=== PATIENT | female | born 1980 | race Two or more races ===

== ENCOUNTER 2017-12-29 10:15 | Inpatient (IN) | payer OTHER ==
--- NOTE | 2017-12-29 11:39 | HP ---
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, benign per heme consult IVF Pertinent Past Surgical History: None Pertinent Family History: See Records Family History Comment: HTN - Antepartal Records Antepartal Records: Reviewed, Complicated by: - IFV, GDM A1, pre- eclampsia Review of Systems Constitutional: Comfortable CV Complaint: No Respiratory: Shortness of Breath: No Gastrointestinal: No Nausea/Vomiting, Normal Bowel Movement Genitourinary: No Dysuria, No Bleeding, No Leaking Fluid Musculoskeletal: No Complaint Neurological: No Headache, No Visual Changes Movement: Normal Exam Allergies/Adverse Reactions: Allergies cinnamon Allergy (Verified 12/04/17 18:13) Swelling Of Face,Lips,& Throat BP 144/104, repeat 142/88 T 98.7 HR 107 RR 22 O2 100 Lab Values - Entire Visit: pending - Measurements Height: 5 ft 7 in Weight: 205 lb Weight in lbs: 205.326136 Body Mass Index (BMI): 32.1 Pre- Weight: 177 lb Weight Gained This : 28 lbs and 0 ozs - Exam Breast: Breast Exam Deferred CVA: No CVA Tenderness Extremities: No Edema Heart: Normal Rhythm/Heart Sounds HEENT: No Significant Findings Lungs: Clear Bilaterally Rectal: Rectal Exam Deferred Reflexes: DTR 2+, - - no clonus Thyroid: - - WNL @ entry to care - Abdominal Exam Abdomen Exam: Non-Tender, Fundal Height Consistent with Dates - Ultrasound/Biophysical Profile Ultrasound Status: Bedside Exam Ultrasound Findings: Confirms vertex Targeted Exam Findings See L&D Outpatient Visit Provider Note for Findings: Yes Estimated Weight: EFW 6-6.5lb Cervical Exam: Fingertip Effacement: 50% Station: -3 Presenting Part: Vertex Membrane Status: Intact EFM Findings - External Monitor Findings Baseline Heart Rate: 145 External Monitor Findings: Accelerations Present, No Pattern of Variable or Late Decelerations, Variability Moderate Contractions: Regular, Mild, < 45 Seconds Contraction Frequency: q 5-6 min Assessment/Plan - Assessment 37 yo with IUP @ 37+5 weeks gestation here for cervical ripening and induction of labor for pre-eclampsia. Hx GDM with this - Obstetrical Risk Factors Obstetrical Risk Factors: PreEclampsia, Gestational Diabetes - Plan Plan: Induction, Cervical Ripening Plan Comment: Admit to L&D. Will draw repeat PEC labs. Discussion of cervical ripening agents , reviewed risks/benefits and patients consent to Cervidil pending stable labs. All questions answered. Per consult with Dr Jansen, consider MgSO4 with active labor for prophylaxis. - Date/Time of Admission Date of Admission: 12/29/17 Time of Admission: 11:15
[2017-12-29 11:40] LABS: ABS Basophils 0 10^3/ul (0-0.2); ABS Eosinophils 0.1 10^3/ul (0-0.6); ABS Lymphocytes 1.4 10^3/ul (1.0-4.8); ABS Monocytes 0.8 10^3/ul (0-0.8); ABS Neutrophils 7.2 10^3/ul (1.5-7.7); ABS Nucleated RBC 0 10^3/ul; Hematocrit 37 % (35-47); Hemoglobin 12.4 g/dl (12.0-16.0); Mean Corpuscular HGB Conc 34 g/dl (31-36); Mean Corpuscular Hemoglobin 28 pg (27-31); Mean Corpuscular Volume 83 fL (80-97); Mean Platelet Volume 9.8 um3 (7.4-10.4); Nucleated Red Blood Cells % 0.1; Platelet Count 228 10^3/ul (150-450); Red Blood Count 4.45 10^6/ul (4.00-5.40); Red Cell Distribution Width 14 % (10.5-15); White Blood Count 9.5 10^3/ul (3.5-10.8)
[2017-12-29] MEDS ORDERED: Dinoprostone* 10 MG VAG.SUPP VAGINAL ONE (12:04)
[2017-12-29 12:42] LABS: Uric Acid 3.6 mg/dL (2.3-6.6)
--- NOTE | 2017-12-29 23:37 | PN ---
Progress Note - Progress Note Date of Service: 12/29/17 SOAP: Subjective: [Patient is feeling well, has been comfortable throughout the day. Mild cramping occasionally but no ctx. Denies RECINOS or visual symptoms. No RUQ pain] Objective: [BP 150/93 T 99.1 FHT 145 ] Assessment: [IUP @ 37+5 weeks gestation for IOL for pre-eclampsia GDM] Plan: [Pull cervidil as planned @ 0130 12/30. Patient to sleep until approx 0600 with plans to recheck cervix and discuss repeat cervidil vs misoprostol]
[2017-12-30] MEDS ORDERED: Misoprostol TAB* 100 MCG PO ONE (09:51)
[2017-12-30] MEDS ORDERED: Misoprostol TAB* 100 MCG PO SCH ×2 (15:05→19:00)
[2017-12-30] MEDS ORDERED: Dinoprostone* 10 MG VAG.SUPP VAGINAL ONE (19:25)
[2017-12-31 08:18] LABS: ABS Basophils 0 10^3/ul (0-0.2); ABS Eosinophils 0.1 10^3/ul (0-0.6); ABS Lymphocytes 1.5 10^3/ul (1.0-4.8); ABS Monocytes 0.7 10^3/ul (0-0.8); ABS Neutrophils 4.4 10^3/ul (1.5-7.7); ABS Nucleated RBC 0 10^3/ul; Eosinophil % 1.8 % (0-6); Hematocrit 36 % (35-47); Hemoglobin 12.2 g/dl (12.0-16.0); Lymphocyte % 22.5 % (25-47); Mean Corpuscular HGB Conc 34 g/dl (31-36); Mean Corpuscular Hemoglobin 28 pg (27-31); Mean Corpuscular Volume 83 fL (80-97); Mean Platelet Volume 9.9 um3 (7.4-10.4); Nucleated Red Blood Cells % 0; Platelet Count 204 10^3/ul (150-450); Red Blood Count 4.34 10^6/ul (4.00-5.40); Red Cell Distribution Width 14 % (10.5-15); White Blood Count 6.8 10^3/ul (3.5-10.8)
[2017-12-31] MEDS ORDERED: Sodium Phosphate ADULT ENEMA* 118 ml bottle PR ONE (12:02)
== END 2017-12-31 14:30 | disposition left against medical advice (07) | DRG 781 ==
LOC: MCHOBOUT 10:15 → MCHOB 10:16 → UNDOADMIN 11:19 → MCHOBOUT 12-31 14:30
PROVIDERS: ADMIT Obstetrics & Gynecology; ATTEND Obstetrics & Gynecology
PROC: 3E0P7VZ Introduction of Hormone into Female Reproductive, Via Natural or Artificial Opening (ICD-10-PCS; principal; 2017-12-29)
PROC: 4A1HX4Z Monitoring of Products of Conception, Cardiac Electrical Activity, External Approach (ICD-10-PCS; 2017-12-29)
PROC: 3E033VJ Introduction of Other Hormone into Peripheral Vein, Percutaneous Approach (ICD-10-PCS; 2017-12-29)
PROC: 3E1H78Z Irrigation of Lower GI using Irrigating Substance, Via Natural or Artificial Opening (ICD-10-PCS; 2017-12-31)
DX: O14.03 Mild to moderate pre-eclampsia, third trimester (principal); O24.419 Gestational diabetes mellitus in pregnancy, unspecified control; O99.013 Anemia complicating pregnancy, third trimester; O75.89 Other specified complications of labor and delivery; K59.00 Constipation, unspecified; D57.3 Sickle-cell trait; Z91.018 Allergy to other foods; Z82.49 Family history of ischemic heart disease and other diseases of the circulatory system; Z3A.37 37 weeks gestation of pregnancy; Z3A.39 39 weeks gestation of pregnancy
CPT/HCPCS: 36415; 80053; 84156; 84550; 85025; 86850; 86900; 86901; A9270-GY; S0191

== ENCOUNTER 2018-01-03 18:09 | Inpatient (IN) | payer OTHER ==
[2018-01-03] MEDS ORDERED: Misoprostol TAB* 100 MCG ONE (18:45)
[2018-01-03] MEDS ORDERED: Misoprostol TAB* 100 MCG VAGINAL ONE (18:45)
--- NOTE | 2018-01-03 19:06 | HP ---
General Information - General Information Maternal Age: 37 Grav: 3 Para: 0 SAB: 2 IEA: 0 Estimated Due Date: 01/14/18 Determined By: LMP Gestational Age in Weeks/Days: 38 3/7 weeks Maternal Blood Type and Rh: O Positive - Results this Serology/RPR Result: Non-Reactive Rubella Result: Immune HBsAg Result: Negative HIV Result: Negative GBS Culture Result: Negative Past Medical History Delivery History: See Records Pertinent Past Medical History: See Records Pertinent Past Surgical History: See Records Pertinent Family History: See Records - Antepartal Records Antepartal Records: Reviewed, Complicated by: - preeclampsia A1DM Review of Systems Constitutional: Comfortable CV Complaint: No Respiratory: Shortness of Breath: No Gastrointestinal: No Nausea/Vomiting, Normal Bowel Movement Genitourinary: No Dysuria, No Bleeding, No Leaking Fluid Musculoskeletal: No Complaint Neurological: No Headache Movement: Normal Exam Allergies/Adverse Reactions: Allergies cinnamon Allergy (Verified 12/04/17 18:13) Swelling Of Face,Lips,& Throat 154/96 P : 104 RR : 20 T : 154/96 - Measurements Height: 5 ft 8 in Weight: 200 lb Body Mass Index (BMI): 30.4 Pre- Weight: 177 lb - Exam Breast: Breast Exam Deferred CVA: No CVA Tenderness Extremities: No Edema Heart: Normal Rhythm/Heart Sounds HEENT: No Significant Findings Lungs: Clear Bilaterally Reflexes: DTR 2+ Thyroid: No Thyromegaly - Abdominal Exam Abdomen Exam: Non-Tender - Ultrasound/Biophysical Profile Ultrasound Status: Not Done Targeted Exam Findings Cervical Exam: Fingertip Effacement: 70% Station: High Presenting Part: Vertex Membrane Status: Intact EFM Findings - External Monitor Findings Baseline Heart Rate: 145 External Monitor Findings: Accelerations Present, No Pattern of Variable or Late Decelerations, Variability Moderate Contractions: Irregular Assessment/Plan - Obstetrical Risk Factors Obstetrical Risk Factors: PreEclampsia, Gestational Diabetes - Plan Plan: Cervical Ripening - Pt had signed out AMA but states she is now comitted to stay until delivery
[2018-01-03 20:53] LABS: ABS Basophils 0 10^3/ul (0-0.2); ABS Eosinophils 0.1 10^3/ul (0-0.6); ABS Lymphocytes 1.4 10^3/ul (1.0-4.8); ABS Monocytes 0.8 10^3/ul (0-0.8); ABS Neutrophils 5.9 10^3/ul (1.5-7.7); ABS Nucleated RBC 0 10^3/ul; Eosinophil % 1.4 % (0-6); Hematocrit 36 % (35-47); Hemoglobin 11.8 g/dl (12.0-16.0); Lymphocyte % 16.8 % (25-47); Mean Corpuscular HGB Conc 33 g/dl (31-36); Mean Corpuscular Hemoglobin 27 pg (27-31); Mean Corpuscular Volume 82 fL (80-97); Mean Platelet Volume 9.8 um3 (7.4-10.4); Nucleated Red Blood Cells % 0.1; Platelet Count 228 10^3/ul (150-450); Red Blood Count 4.32 10^6/ul (4.00-5.40); Red Cell Distribution Width 14 % (10.5-15); White Blood Count 8.2 10^3/ul (3.5-10.8)
[2018-01-04] MEDS ORDERED: Misoprostol TAB* 100 MCG VAGINAL ONE (01:29)
[2018-01-04] MEDS: Misoprostol TAB* 100 MCG VAGINAL SCH ×3 (09:36→18:23)
--- NOTE | 2018-01-04 10:45 | PN ---
Progress Note - Progress Note Date of Service: 01/04/18 Note: S: pt feels crampy and occ contractions but not very strong. Relatively comfortable. Interested in cervical rdeman bulb placement. VS: BPs mildly elevated but stable. NST: Reactive, 140bpm, Cat 1. No decels. Cx:/-3, cervix very soft. Attempted redman catheter placement in cervix but unable to thread through internal os. Instead 25mcg cytotec placed PV. Plan to re-eval in 4hrs
[2018-01-04] MEDS ORDERED: Dinoprostone* 10 MG VAG.SUPP VAGINAL ONE (17:58)
[2018-01-04] MEDS ORDERED: Promethazine INJ(RESTRICTED)* 25 MG/ML 1 ML VIAL IM ONE (20:50)
[2018-01-04] MEDS ORDERED: Nalbuphine* 10 MG/ML 1 ML VIAL IM ONE (20:50)
[2018-01-04] MEDS ORDERED: Nalbuphine* 10 MG/ML 1 ML VIAL IM PRN (22:14)
[2018-01-04] MEDS ORDERED: Promethazine INJ(RESTRICTED)* 25 MG/ML 1 ML VIAL IM PRN (22:14)
[2018-01-05] MEDS ORDERED: OBEPIDURAL* 250 ML EPIDURAL ONE (02:24)
[2018-01-05 02:48] LABS: ABS Basophils 0 10^3/ul (0-0.2); ABS Eosinophils 0 10^3/ul (0-0.6); ABS Lymphocytes 1.3 10^3/ul (1.0-4.8); ABS Monocytes 1.3 10^3/ul (0-0.8); ABS Neutrophils 10.4 10^3/ul (1.5-7.7); ABS Nucleated RBC 0 10^3/ul; Eosinophil % 0.2 % (0-6); Hematocrit 40 % (35-47); Hemoglobin 13.1 g/dl (12.0-16.0); Lymphocyte % 9.7 % (25-47); Mean Corpuscular HGB Conc 33 g/dl (31-36); Mean Corpuscular Hemoglobin 28 pg (27-31); Mean Corpuscular Volume 83 fL (80-97); Mean Platelet Volume 10.5 um3 (7.4-10.4); Nucleated Red Blood Cells % 0; Platelet Count 242 10^3/ul (150-450); Red Blood Count 4.77 10^6/ul (4.00-5.40); Red Cell Distribution Width 14 % (10.5-15)
[2018-01-05] MEDS ORDERED: Sodium Citrate/Citric Acid* 15 ML UDC PO PRN (03:44)
[2018-01-05] MEDS ORDERED: Phenylephrine IV* 40 MCG/ML 10 ML SYRINGE IV PUSH PRN ×2 (03:44)
[2018-01-05] MEDS ORDERED: OBEPIDURAL* 250 ML EPIDURAL SCH (04:00)
[2018-01-05] MEDS ORDERED: Dibucaine 1% 28.35 GM TUBE PR PRN (05:08)
[2018-01-05] MEDS ORDERED: Glycerin ADULT SUPP PR PRN (05:08)
[2018-01-05] MEDS ORDERED: Witch Hazel PAD* JAR TOPICAL PRN (05:08)
[2018-01-05] MEDS ORDERED: Oxytocin in LR* 20 UNITS/1,000 ML BAG IVPB ONE (05:11)
[2018-01-05] MEDS ORDERED: Oxytocin in LR* 20 UNITS/1,000 ML BAG IVPB SCH (06:00)
--- NOTE | 2018-01-05 08:02 | PROCNOTE ---
[facility] OB: Delivery Note - Delivery A Date of : 01/05/18 Time of : 06:59 Sex: Female Gestational Age in Weeks and Days at Delivery: 38 Weeks and 5 Days Delivery Method: Spontaneous Vaginal Labor: Induced Did Patient attempt ?: N/A, No Previous Amniotic Fluid: Clear Estimated Blood Loss: 200 Anesthesia/Analgesia: CEI for Labor Delivered By: Yarely Vincent - Nursery Level of Nursery: Regular/Bedside - Perineum Perineal Injury: Vaginal Laceration, 1st Degree Perineal Repair: By Delivering Practioner - Events Delivery Events of Note: Pitocin During Labor - Risk for Falls Other Risk for Falls: None - Additional Delivery Notes Additional Delivery Notes: Pt underwent induction of labor for preeclampsia. She had been in the hospital the week prior for cervidil x2. This time she received cytotec x4, then a cervidil. She began ashu regularly with cervidil, received nubain and phenergan x2, the cervidil was removed and eventually she was found to be 6cm and received an epidural. She progressed quickly to fully dilated. She began pushing. Ctxs were about 5min apart but spaced out to 7-8min apart so pitocin was started. She pushed almost 3hrs to deliver the 's head in LARRY position followed quickly by the shoulders and the rest of the body. The baby was placed on mom's abdomen. After 3min the cord was clamped x2 and cut. Cord blood was collected. The placenta delivered with gentle cord traction and fundal massage. Good hemostasis. Fundus firm. a small vaginal laceration was repaired with a figure of eight suture and a 1st degree perineal tear was repaired also with a figure of eight suture of 3-0 vicryl rapide. Mom and baby doing well at time of note.
[2018-01-05] MEDS ORDERED: Simethicone TAB* 80 MG TAB.CHEW PO SCH (08:30)
[2018-01-05] MEDS: Ibuprofen TAB* 600 MG PO PRN ×2 (11:24→17:56)
[2018-01-05] MEDS: Docusate CAP* 100 MG PO SCH ×3 (17:56→21:17)
[2018-01-05] MEDS: Acetaminophen TAB* 325 MG PO PRN (21:17)
[2018-01-06] MEDS: Ibuprofen TAB* 600 MG PO PRN ×4 (00:10→21:36)
[2018-01-06 06:59] LABS: ABS Basophils 0 10^3/ul (0-0.2); ABS Eosinophils 0.1 10^3/ul (0-0.6); ABS Lymphocytes 1.9 10^3/ul (1.0-4.8); ABS Nucleated RBC 0 10^3/ul; Eosinophil % 1.3 % (0-6); Hematocrit 29 % (35-47); Hemoglobin 9.7 g/dl (12.0-16.0); Mean Corpuscular HGB Conc 34 g/dl (31-36); Mean Corpuscular Hemoglobin 28 pg (27-31); Mean Corpuscular Volume 82 fL (80-97); Mean Platelet Volume 9.4 um3 (7.4-10.4); Nucleated Red Blood Cells % 0.1; Platelet Count 177 10^3/ul (150-450); Red Blood Count 3.48 10^6/ul (4.00-5.40); Red Cell Distribution Width 14 % (10.5-15)
[2018-01-06] MEDS: Ferrous Gluconate TAB* 324 MG TAB PO SCH ×2 (08:07→21:36)
[2018-01-06] MEDS: Docusate CAP* 100 MG PO SCH ×3 (08:08→21:36)
[2018-01-06] MEDS: Acetaminophen TAB* 325 MG PO PRN (12:04)
--- NOTE | 2018-01-06 13:27 | PTEDU ---
Patient Name: TERA ESPARZA TERA ESPARZA selected video: Follow Me Mum: [employer] Successful to view on 8 at 1:27:15 PM from [id number]
[2018-01-06] MEDS ORDERED: Tetan/Diph/Pertus SYR(Tdap)* 0.5 ML SYR(BOOSTRIX) use SYR IM ONE (16:11)
[2018-01-07] MEDS: Ibuprofen TAB* 600 MG PO PRN ×2 (04:24→09:47)
[2018-01-07 08:51] VITALS: BP 142/90
[2018-01-07] MEDS: Docusate CAP* 100 MG PO SCH (09:48)
[2018-01-07] MEDS: Ferrous Gluconate TAB* 324 MG TAB PO SCH (09:48)
== END 2018-01-07 12:05 | disposition home or self-care (01) | DRG 775 ==
LOC: MCHOBOUT 18:09 → MCHOB 18:31
PROVIDERS: ADMIT Obstetrics & Gynecology; ATTEND Obstetrics & Gynecology
PROC: 3E0P7VZ Introduction of Hormone into Female Reproductive, Via Natural or Artificial Opening (ICD-10-PCS; principal; 2018-01-05)
PROC: 10E0XZZ Delivery of Products of Conception, External Approach (ICD-10-PCS; 2018-01-05)
PROC: 3E033VJ Introduction of Other Hormone into Peripheral Vein, Percutaneous Approach (ICD-10-PCS; 2018-01-05)
PROC: 4A1HXCZ Monitoring of Products of Conception, Cardiac Rate, External Approach (ICD-10-PCS; 2018-01-05)
PROC: 0HQ9XZZ Repair Perineum Skin, External Approach (ICD-10-PCS; 2018-01-05)
PROC: 0UQGXZZ Repair Vagina, External Approach (ICD-10-PCS; 2018-01-05)
DX: O14.94 Unspecified pre-eclampsia, complicating childbirth (principal); O24.429 Gestational diabetes mellitus in childbirth, unspecified control; O70.0 First degree perineal laceration during delivery; O90.81 Anemia of the puerperium; Z91.018 Allergy to other foods; Z3A.38 38 weeks gestation of pregnancy; Z37.0 Single live birth
CPT/HCPCS: 36415; 82947; 84450; 84460; 85025; 86850; 86900; 86901; 90715; A9270-GY; J2300; J2550; S0191

== ENCOUNTER 2018-09-23 07:25 | Emergency (ER) | payer OTHER ==
--- NOTE | 2018-09-23 07:34 | UC ---
Skin Complaint HPI - HPI Summary HPI Summary: CHIEF COMPLAINT and HPI: This is a healthy 38-year-old female who comes in complaining of one day history of a rash in the left lower extremity. She states that she was sitting in a garden yesterday but was fully dressed. She has no significant history of skin allergy or asthma. She complains that the 3 areas of rash and itch with erythema. The left inner thigh is also swollen and painful. She denies fever and she is afebrile in that urgent care center. Note is made of a pulse of 113 and a blood pressure of 166/91. Patient is breast-feeding at the current time. Description of Pain: Location: left inner thigh, posterior buttocks, belt line lateral on left Radiation: no Type: burning Intensity: 7/10 Variation: getting worse VITAL SIGNS & SaO2 REVIEWED. Within normal limits unless noted here. 166/91; fatdi=021. NURSES NOTE REVIEWED. "pt with red and swollen areas on her left upper leg, no open areas, warm to the touch, itchy, and burning. Started yesterday, after sitting in a garden at work. There are three spots. afebrile. " - History of Current Complaint Time Seen by Provider: 09/23/18 07:29 Stated Complaint: SKIN ISSUE - Allergy/Home Medications Allergies/Adverse Reactions: Allergies Allergy/AdvReac Type Severity Reaction Status Date / Time cinnamon Allergy Swelling Verified 09/23/18 07:36 Of Face,Lips,& Throat Home Medications: Home Medications Pseudoephedrine HCl [Sudafed] 1 tab PO ONCE PRN 09/23/18 [History Confirmed ] PMH/Surg Hx/FS Hx/Imm Hx - Additional Past Medical History Additional PMH: PAST MEDICAL HISTORY- mitral valve prolapse, infertility, satiety, gestational diabetes. CHRONIC and RECURRENT HEALTH PROBLEM LIST REVIEWED. Information relevant to present complaint: pregant. VISIT HISTORY REVIEWED. MEDICATIONS & ALLERGIES REVIEWED. HYPERTENSION STATUS: No antihypertensive medication. FAMILY HISTORY: Positive for: hypertension.er. Patient denies family history of: hypertension, cardiovascular disease, stroke, diabetes, cancer. SOCIAL HISTORY: non-smoker, lives with and , and works at [employer] . Previously Healthy: Yes - Social History Alcohol Use: None Substance Use Type: None Smoking Status (MU): Never Smoked Tobacco Have You Smoked in the Last Year: No - Immunization History Most Recent Influenza Vaccination: Declined 2018 Most Recent Pneumonia Vaccination: none Review of Systems All Other Systems Reviewed And Are Negative: Yes Constitutional: Positive: Negative Skin: Positive: Rash - left leg and buttocks and belt line Respiratory: Positive: Negative. Negative: Shortness Of Breath Cardiovascular: Positive: Negative. Negative: Palpitations Gastrointestinal: Positive: Negative. Negative: Abdominal Pain Is Patient Immunocompromised?: No Physical Exam - Summary Physical Exam Summary: Appearance: The patient is well-appearing, is in no pain or distress, and is well-nourished. Eyes: Conjunctiva are clear. Pupils are equal and reactive to light and accommodation. Extra ocular muscle movement is intact. ENT: The hearing is grossly normal, the pharynx is normal, and the TMs are normal. There is no muffled or hoarse voice. No stridor. Neck: The neck is supple and there is no lymphadenopathy. Respiratory: The chest is non-tender to palpation and without crepitus. The lungs are clear, there are normal breath sounds, and there is no respiratory distress. No wheezes, rales or rhonchi. Cardiovascular: Heart sounds reveal a regular rate and rhythm. There are no clicks, rubs or murmurs. There are no carotid bruits or thrills. Circulation is grossly intact. Abdomen: The abdomen is soft and nontender. There is no organomegaly. Bowel sounds are present and within normal limits. No point tenderness at McBurneys point. No CVA tenderness. Musculoskeletal: Strength is intact. The patient moves all extremities. Neurological: The patient is alert. Motor and sensory are examination grossly intact. Speech is normal. Psychological: The patient displays age appropriate behavior, and is conversant. GCS=15. Skin: a wide area of erythema with some edema on the left inner thigh below the groin. There is also an area on the posterior left buttocks approximately 6 cm in diameter as well as an area that is smaller along the left belt line that is approximately 4 cm in diameter and is oval. There is no ascending lymphangitis or cellulitis. There are no vesicles. Course/Dx - Course Course Of Treatment: MEDICAL DECISION MAKING and PLAN: This is a healthy 38-year-old female who comes in complaining of one day history of a rash in the left lower extremity. She states that she was sitting in a garden yesterday but was fully dressed. She has no significant history of skin allergy or asthma. She complains that the 3 areas of rash and itch with erythema. The left inner thigh is also swollen and painful. She denies fever and she is afebrile in that urgent care center. Note is made of a pulse of 113 and a blood pressure of 166/91. Patient is breast-feeding at the current time. Past medical history is significant for mitral valve prolapse. Review of systems is otherwise unremarkable. Physical examination shows a wide area of erythema with some edema on the left inner thigh below the groin. There is also an area on the posterior left buttocks approximately 6 cm in diameter as well as an area that is smaller along the left belt line that is approximately 4 cm in diameter and is oval. There is no ascending lymphangitis or cellulitis. There are no vesicles. The patient denies tick bites. There is a family history of hypertension and the patient is hypertensive here. Her past medical history and family history otherwise noncontributory. I discussed with the patient and her the possibility that this could be an allergic reaction such as a contact dermatitis even though she was fully dressed. It may be that she touched something that touched her skin. However, this is not a typical allergic reaction. At this time, I will diagnose cellulitis and treat her with Keflex. Note is made that she is lactating and breast-feeding. She knows to call me in 2 days if her condition worsens. Furthermore, I will recommend that she treat these areas with hydrocortisone cream and calamine as well as take Claritin for the itching and oatmeal baths. She can take Benadryl at night if the itching is severe. It is my expectation that the cause of this condition will become clearer over the next two days. MEDICATIONS REVIEWED. HYPERTENSION STATUS REVIEWED WITH PATIENT IF blood pressure is above 120/80. Patient will follow up with PMD within 4 weeks for elevated BP. - Differential Diagnoses - Skin Complaint Differential Diagnoses: Allergic Reaction - contact dermatitis, Cellulitis, MRSA , Other - result of tick bite - Diagnoses Provider Diagnosis: Cellulitis, Contact dermatitis Discharge - Sign-Out/Discharge Documenting (check all that apply): Patient Departure All imaging exams completed and their final reports reviewed: No Studies - Discharge Plan Condition: Stable Disposition: HOME Prescriptions: Cephalexin CAP* [Keflex 500 CAP*] 500 mg PO QID #28 cap MDD 4 Referrals: No Primary Care Phys,NOPCP [Primary Care Provider] - Additional Instructions: WE DISCUSSED: PLEASE SEEK CARE AT THE EMERGENCY DEPARTMENT IF SYMPTOMS WORSEN OR IF NEW SYMPTOMS DEVELOP. FOLLOW UP WITH YOUR PRIMARY CARE PHYSICIAN IF CONDITION CONTINUES BEYOND 3 DAYS WITHOUT IMPROVEMENT. YOUR DIAGNOSIS IS: SKIN INFECTION; POSSIBLE ALLERGIC SKIN REACTION YOUR PRESCRIPTION RECOMMENDATION IS: KEFLEXT, 500MG, FOUR TIMES A DAY FOR 7 DAYS OTHER INSTRUCTIONS: Claritin or similar anti-histamine for itching. Hydrocortisone cream and calomine to skin for itching. Oatmeal baths to area for itching. CALL IN 2 DAYS OR GO TO ED IF CONDITION IS MORE PAINFUL, RED, RED LINES NOTICED , ELEVATED TEMPERATURE. The treatment is to prevent a skin infection. This may be an allergic reaction and the other treatment including benadryl will help with itching. Attempt to adjust schedule of breast feeding. Over the next two days this skin condition may become more clear. Call your our physician referral service for follow up with this condition and with hypertension. Also: CALL [facility]. [phone] Hypertension Discharge Instructions: Your blood pressure reading today was 166/91, indicating HYPERTENSION. Follow- up with your primary care provider within 4 weeks for blood pressure check and appropriate recommendations and treatment, as needed. FOR PAIN AND/OR SLEEP: For pain: Ibuprofen (Motrin and other brand names) 400-600mg PLUS acetaminophen (Tylenol and other brand names) 500mg - 1000mg every 8 hours. - Billing Disposition and Condition Condition: STABLE Disposition: Home
[2018-09-23 07:39] VITALS: BP 166/91
== END 2018-09-23 08:30 | disposition home or self-care (01) ==
LOC: UCEAST 07:25
DX: L03.116 Cellulitis of left lower limb (principal); L03.317 Cellulitis of buttock; L03.311 Cellulitis of abdominal wall; L25.9 Unspecified contact dermatitis, unspecified cause; R03.0 Elevated blood-pressure reading, without diagnosis of hypertension; Z91.048 Other nonmedicinal substance allergy status
CPT/HCPCS: 99212; G0463

== ENCOUNTER 2018-09-23 14:51 | Observation (INO) | payer OTHER ==
--- NOTE | 2018-09-23 17:08 | ED ---
Skin Complaint - HPI Summary HPI Summary: A 38 y/o F presents to ED with rash on inner L thigh onset yesterday afternoon. She was seen at [facility] [place] 0800 today, where the provider huy a border around the rash. It has spread greatly, approx 2 inch, since that time. Per [facility] records: HR : 113 bpm, BP: 166/91; patient is breast feeding; E PE found a rash on inner L thigh, posterior buttocks and L lateral belt line that was warm to touch. Patient ate lunch outside in a garden yesterday, and felt a pain in her leg. She thought something bit her. It was red about the size of a quarter at that time but worsened overnight. The rash is painful, swollen, red, itchy and warm. Associated sx: rash on R inner thigh. Denies fever, genital lesions. She denies chance of . No PMHx DM. Patient has (LINDY-1) 4G/5G mutation (clotting disorder). She was on Lovenox during her . [facility]: 08/30/17 which was normal. She has an 8 month old infant. Vitals at bedside: HR: 109 bpm, BP: 151/112, O2 sat: 100 %. Home Medications Medication Instructions Recorded Confirmed Type Vitamin TAB* 1 tab PO DAILY 12/04/17 09/23/18 History Cephalexin CAP* [Keflex 500 CAP*] 500 mg PO QID #28 cap MDD 4 09/23/18 09/23/18 Rx Pseudoephedrine HCl [Sudafed] 1 tab PO ONCE PRN 09/23/18 09/23/18 History - History of Current Complaint Chief Complaint: EDRashSkinAbscess Stated Complaint: INFLAMED GROWTH ON LEFT LEG PER PT Hx Obtained From: Patient, Medical Records - [facility] [place] Last Menstrual Period: 08/30/18 Onset/Duration: Started Days Ago - yesterday, Still Present Timing: Constant, Lasting Days - yesterday Onset Severity: Moderate Current Severity: Severe Pain Intensity: 7 Pain Scale Used: 0-10 Numeric Skin Location: Leg - L thigh, R thigh Character: Swelling, Pruritus, Pain, Redness Aggravating Symptom(s): Nothing Alleviating Symptom(s): Nothing - Allergy/Home Medications Allergies/Adverse Reactions: Allergies Allergy/AdvReac Type Severity Reaction Status Date / Time cinnamon Allergy Swelling Verified 09/23/18 07:36 Of Face,Lips,& Throat PMH/Surg Hx/FS Hx/Imm Hx Previously Healthy: No - Plasminogen Activator Inhibitor-1 (LINDY-1) 4G/5G mutation Endocrine/Hematology History: Reports: Other Endocrine/Hematological Disorders - Gestational Diabetes Denies: Hx Diabetes, Hx Thyroid Disease Cardiovascular History: Denies: Hx Hypertension Respiratory History: Denies: Hx Asthma History: Denies: Hx Kidney Infection, Other Problems/Disorders Psychiatric History: Reports: Hx Anxiety Denies: Hx Depression, Other Psychiatric Issues/Disorders - Surgical History Surgery Procedure, Year, and Place: None. Infectious Disease History: No Infectious Disease History: Denies: Traveled Outside the [place] in Last 30 Days - Family History Family History: Paternal aunt at 38 y/o due to DVT. - Social History Occupation: Employed Full-time Lives: With Family Alcohol Use: None Hx Substance Use: No Substance Use Type: Reports: None Hx Tobacco Use: No Smoking Status (MU): Never Smoked Tobacco Have You Smoked in the Last Year: No Review of Systems Negative: Fever Positive: other - neg: genital lesions Positive: Rash - largely on L thigh, some on R thigh. Areas are red, swollen, painful, itchy, warm to touch. All Other Systems Reviewed And Are Negative: Yes Physical Exam - Summary Physical Exam Summary: Appearance: Well-appearing, mild pain distress, well-nourished. Wearing a hijab , not removed for exam. Skin: Warm, color reflects adequate perfusion, dry. The rash area on the L thigh is 31 cm x 23 cm and extends to her L buttock. There are 3 small bumps on R medial thigh each about 3 cm; 1 small bump on R medial thigh closer to labia about 1 cm, and 1 area by lateral L belt line of 7 cm. The areas are tender, erythematous and warm to touch. Head: Normal Head/Face inspection, atraumatic Eyes: Conjunctiva clear ENT: Normal inspection Neck: Supple, no nodes, no JVD Respiratory: Lungs clear, normal breath sounds, no respiratory distress Cardio: RRR, No murmur, pulses normal, brisk capillary refill Abdomen: Soft, nontender Bowel sounds: Present Musculoskeletal: Strength Intact/ROM intact, no calf tenderness, no edema. Distal pulses intact. Psychological: Normal Neuro: Alert, muscle tone normal, no focal deficit Triage Information Reviewed: Yes Vital Signs On Initial Exam: Initial Vitals Temp Pulse Resp BP Pulse Ox 97.8 F 113 18 129/97 100 09/23/18 14:53 09/23/18 14:53 09/23/18 14:53 09/23/18 14:53 09/23/18 14:53 Vital Signs Reviewed: Yes Diagnostics - Vital Signs Vital Signs Temp Pulse Resp BP Pulse Ox 09/23/18 14:53 97.8 F 113 18 129/97 100 - Laboratory Result Diagrams: 09/23/18 17:33 09/23/18 17:33 Lab Statement: Any lab studies that have been ordered have been reviewed, and results considered in the medical decision making process. - Ultrasound No standard instances Ultrasound Interpretation Completed By: Radiologist Summary of Ultrasound Findings: IMPRESSION: 1. No evidence of left lower extremity DVT. However, there is limited. visualization of the proximal femoral vein and profunda femoris vein secondary to edema. 2. Subcutaneous edema is noted in area of redness and swelling in left upper thigh. No focal fluid collection or mass. ED provider has reviewed this report. Re-Evaluation - Re-Evaluation 1 Re-Evaluation Time: 19:38 Change: Worse Comment: Patient is c/o pain. The L thigh rash has gotten bigger and feels firmer since ED provider was last in ED. The rash does extend to L buttock. 2 Re-Evaluation Time: 20:26 Change: Unchanged Comment: Discussing US results with patients and possibility of admission. The large rash on inner L thigh is approx 31 cm x 23 cm. Course/Dx - Course Course Of Treatment: Patient is a 38 y/o F presenting with worsening rash on inner L thigh onset yesterday afternoon, she thinks from an insect bite. She was seen at [facility] 0800 today, and the rash has increased approx 2 inch in that time. Pt has LINDY-1 4G/5G mutation. She has an 8 month old and is . PE finds 3 small bumps on R medial thigh each about 3 cm; 1 small bump on R medial thigh closer to labia about 1 cm, and 1 area by lateral L belt line of 7 cm. The areas are tender, erythematous and warm to touch. Lab work shows: RBC: 5.11, CRP is 50.80, glucose: 119. UA results show 1+ protein, 2 + blood, 3+ RBC, squamous epithelia present. Left Venous Doppler shows "1. No evidence of left lower extremity DVT. However, there is limited visualization of the proximal femoral vein and profunda femoris vein secondary to edema. 2. Subcutaneous edema is noted in area of redness and swelling in left upper thigh. No focal fluid collection or mass.". Pt given fluids, Cefazolin sodium IV. Allergies noted, high blood pressure noted. Pt medications reviewed this visit. Nurses note reviewed. Consulted with Dr. Carlson, hospitalist, who will admit patient. - Diagnoses Provider Diagnoses: Cellulitis of left thigh - Physician Notifications Discussed Care Of Patient With: Cary Carlson - hospitalist Time Discussed With Above Provider: 20:56 Instructed by Provider To: Admit As Inpatient Discharge - Sign-Out/Discharge Documenting (check all that apply): Patient Departure - ADMIT Patient Received Moderate/Deep Sedation with Procedure: No - Discharge Plan Disposition: ADMITTED TO [facility] Referrals: No Primary Care Phys,NOPCP [Primary Care Provider] - - Attestation Statements Document Initiated by Scribe: Yes Documenting Scribe: Rosa Reardon Provider For Whom Scribe is Documenting (Include Credential): Dr. Princess Yates MD Scribe Attestation: Rosa Butcher scribed for Dr. Princess Yates MD on 09/23/18 at 2055. Status of Scribe Document: Ready
[2018-09-23] MEDS ORDERED: ceFAZolin 1 GM ADVAN(*) 1 GM in NS 0.9% 50 ML* 50 ML IVPB ONE (17:12)
[2018-09-23 17:41] LABS: ABS Monocytes 0.4 10^3/ul (0-0.8); ABS Neutrophils 5.8 10^3/ul (1.5-7.7); Eosinophil % 0.4 %; Hematocrit 41 % (35-47); Hemoglobin 13.7 g/dL (12.0-16.0); Lymphocyte % 24.6 %; Mean Corpuscular HGB Conc 33 g/dL (31-36); Mean Corpuscular Hemoglobin 27 pg (27-31); Mean Corpuscular Volume 80 fL (80-97); Mean Platelet Volume 8.3 fL (7.4-10.4); Nucleated Red Blood Cells % 0.1; Platelet Count 391 10^3/uL (150-450); Red Blood Count 5.11 10^6 /uL (3.70-4.87); Red Cell Distribution Width 15 % (10.5-15); White Blood Count 8.3 10^3/uL (3.5-10.8)
[2018-09-23] MEDS: NS 0.9% 1000 ML** 1,000 ML IV.FLUID IV ONE ×2 (17:42→18:26)
[2018-09-23 17:50] LABS: Activated Partial Thrombo Time 29.6 seconds (26.0-36.3); INR 0.97 (0.82-1.09)
[2018-09-23 18:01] LABS: Urine Appearance Cloudy; Urine Bacteria Absent (Absent); Urine Bilirubin Negative (Negative); Urine Blood 2+ (Negative); Urine Color Yellow; Urine Glucose Negative (Negative); Urine Ketones Negative (Negative); Urine Nitrite Negative (Negative); Urine Protein 1+(30 mg/dL) (Negative); Urine Red Blood Cell 3+(>10/hpf) (Absent); Urine Specific Gravity 1.017 (1.010-1.030); Urine Squamous Epithelial Cell Present (Absent); Urine Urobilinogen Negative (Negative); Urine White Blood Cell Trace(0-5/hpf) (Absent)
[2018-09-23 18:01] LABS: Albumin 3.6 g/dL (3.2-5.2); Albumin/Globulin Ratio 1.1 (1-3); BUN/Creatinine Ratio 12.3 (8-20); C Reactive Protein 50.8 mg/L (<8.01); Calcium 8.8 mg/dL (8.6-10.3); EGFR African American 108.5 (>60); EGFR Non-African American 89.7 (>60); Globulin 3.4 g/dL (2-4); Potassium 3.8 mmol/L (3.5-5.0); Total Bilirubin 0.3 mg/dL (0.2-1.0)
[2018-09-23 19:05] LABS: Erythrocyte Sed Rate 12 mm/Hr (0-19)
[2018-09-23] MEDS ORDERED: oxyCODONE/Acetamin 5/325 MG* TAB PO PRN (21:38)
[2018-09-23] MEDS ORDERED: Acetaminophen TAB* 325 MG PO PRN (21:38)
[2018-09-23] MEDS ORDERED: Ibuprofen TAB* 600 MG PO PRN (21:40)
[2018-09-23] MEDS ORDERED: Pseudoephedrine TAB* 30 MG PO PRN (21:41)
[2018-09-23] MEDS: DOXYcycline IV* 100 MG in NS 0.9% 250 ML* 250 ML IVPB SCH (22:47)
[2018-09-23] MEDS: Enoxaparin(*) 40 MG/0.4 ML SYR SUBCUT SCH (22:56)
[2018-09-23] MEDS: diPHENhydraMINE PO* 25 MG PO PRN (22:56)
--- NOTE | 2018-09-23 23:52 | HP ---
CC: Dr. Yarely Vincent * HISTORY AND PHYSICAL: DATE OF ADMISSION: 09/23/18 PRIMARY CARE PROVIDER: Yarely Vincent MD CHIEF COMPLAINT: Leg swelling and itchy skin. HISTORY OF PRESENT ILLNESS: Lilian Coe is a 38-year-old female who has an 8- month-old baby who presented to the hospital complaining of skin rash and itchiness. The patient stated that 2 days ago she was eating lunch outside in the [place] and she all of a sudden developed itchy skin and swelling in the thigh on the right. She also noted that she had a similar patch of redness and irritated skin on the right inner thigh and left hip. She stated that the area especially in the left inner thigh has gotten more swollen and itchy and she came in to urgent care for evaluation and was prescribed Keflex. I am unsure if patient was able to take a tablet of Keflex or not, but nevertheless she presented to the ED just several hours after she was at urgent care with complaints of more swelling. At this point, the outline area of the redness on her left inner thigh appears the same as prior. The patient stated that all of these skin lesions appeared suddenly and had been "growing" ever since 2 days ago. She denies any fevers. Her skin is also itchy in those areas. She also complains of burning in the areas. Dr. Yates saw the patient in the emergency department and diagnosed with cellulitis and possibility of sepsis. The patient denies any problems with insect bites or specifically tic bites, although she was outdoors when the symptoms developed. PAST MEDICAL HISTORY: The patient is 8 months . She is her 8-month-old daughter. The patient has a history of LINDY-1 gene 4G/5G gene mutation, which predisposes her to thrombosis and had been on Lovenox during her . MEDICATIONS AT HOME: Include: 1. Sudafed on p.r.n. basis. 2. vitamin. 3. Cephalexin 500 mg 4 times a day, started today. ALLERGIES: CINNAMON OIL. FAMILY HISTORY: The patient's both of her parents are healthy with no significant history of cancer, diabetes, or hypertension. 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 She is and her is her surrogate. She denies any alcohol, tobacco, or drug use. REVIEW OF SYSTEMS: Please see history of present illness. All the remaining 12 systems were reviewed with the patient and was otherwise negative. Specifically, the patient denies any recent travel. PHYSICAL EXAMINATION GENERAL: The patient is a very pleasant 38-year-old female who is in no acute distress. Alert, awake, and oriented x3. VITAL SIGNS: Blood pressure of 165/103, heart rate of 112 and regular, respiratory rate 18, oxygen saturation 97% on room air, temperature 98.6. HEENT: Head: Atraumatic, normocephalic. Eyes: Pupils are equal, reactive to light and accommodation. Oropharynx clear. Mucosa moist. NECK: Supple. No JVD, no bruits bilaterally. RESPIRATORY: Clear to auscultation bilaterally. CARDIOVASCULAR: Regular rate and rhythm. No murmur. ABDOMEN: Soft, nontender. Bowel sounds are present in all 4 quadrants. EXTREMITIES: There is left inner thigh edema of an area of approximately 20 x 20 cm. The area has erythema, increased warmth where the patient indicates also itchy and burning. In the inner thigh on the right side, the patient has a small area of erythema approximately 10 cm in diameter with slight swelling. There is a similar 10 cm lesion in the left hip that is also with erythema. Due to the patient's darker skin, it is difficult to see streaking but the areas are definitely with increased warmth to palpation and with erythema. There are no other lesions noted on the patient's skin elsewhere. NEUROLOGIC: On neuro evaluation, speech is clear. Cranial nerves II through XII grossly intact. Motor strength is 5/5 bilaterally. DIAGNOSTIC STUDIES/LAB DATA: Laboratory data showed white blood cell count of 8.3, hemoglobin of 13.7, hematocrit of 41, and platelets of 391,000. ESR of 12. Sodium was 139, potassium 3.8, chloride 107, carbon dioxide 25, BUN is 9, creatinine 0.73. Liver function tests unremarkable. Lactic acid 1.7. C- reactive protein of 50. Urinalysis positive for trace blood, +3 rbc's, negative for bacteria. Venous Doppler study was negative for DVT, although there was limited visualization of the proximal femoral vein and profunda femoral vein secondary to edema. Subcutaneous edema is noted in the area of swelling in the left upper thigh. No local fluid collection or mass." ASSESSMENT AND PLAN: 1. The patient has developed areas of pleuritic erythematous skin on her bilateral thighs 2 days ago when she was eating lunch in the garden. At this point, the differential includes possibility of cellulitis or a cellulitis that was subsequent to insect bite. It also could be atypical Lyme disease presentation. At this point, the patient has no white blood cell count elevation and I believe that her tachycardia and hypertension is due to stress. The patient stated that she feels very nervous in the hospital. At this point , the patient is going to be placed on overnight observation. We discussed possibility of treatment with cefazolin that could potentially treat Lyme, but doxycycline would do it better. The patient is currently but stated that she is going to discard the milk and she would prefer to treated with doxycycline. She is going to be placed on doxycycline IV twice a day. Lyme titers are going to be obtained. She already received IV fluids for a possibility of sepsis in the emergency department and I do not believe she needs any further intravenous hydration. She is hemodynamically stable and she had been afebrile. 2. For DVT prophylaxis, due to her history of abnormal gene mutation and now with swelling of her thigh, the patient is going to be placed on Lovenox daily. 3. The patient's code status is full and her surrogate is her as mentioned above. TIME SPENT: Approximately 65 minutes was spent on admission of this patient, more than half of that time was spent [id number] with the patient during the interview and physical exam. [id number]/CPS #: [id number] MTDD
[2018-09-24 05:59] LABS: ABS Lymphocytes 1.9 10^3/ul (1.0-4.8); ABS Monocytes 0.3 10^3/ul (0-0.8); ABS Neutrophils 4.9 10^3/ul (1.5-7.7); Eosinophil % 0.5 %; Hematocrit 38 % (35-47); Hemoglobin 12.6 g/dL (12.0-16.0); Lymphocyte % 26.3 %; Mean Corpuscular HGB Conc 33 g/dL (31-36); Mean Corpuscular Hemoglobin 27 pg (27-31); Mean Corpuscular Volume 81 fL (80-97); Mean Platelet Volume 8.3 fL (7.4-10.4); Nucleated Red Blood Cells % 0.1; Platelet Count 342 10^3/uL (150-450); Red Blood Count 4.69 10^6 /uL (3.70-4.87); Red Cell Distribution Width 15 % (10.5-15); White Blood Count 7.1 10^3/uL (3.5-10.8)
[2018-09-24 06:18] LABS: BUN/Creatinine Ratio 7.7 (8-20); Calcium 7.8 mg/dL (8.6-10.3); EGFR African American 124.1 (>60); EGFR Non-African American 102.6 (>60); Potassium 3.5 mmol/L (3.5-5.0)
--- NOTE | 2018-09-24 10:28 | PN ---
Subjective Date of Service: 09/24/18 Interval History: Pt with erythema and induration spreading near sites of IV attempts in b/l flexural areas of elbows, as well and spreading erythema and induration of L thigh, with new area medially over upper L arm approx 4cm diameter. Reports they are itchy. No overlying rash (papular, vesicular, etc), discharge, or skin breakdown. This medical technical writer scratched the patient's arm with a pen over L palmar side of forearm - no hives appeared during interview. Concern for new-onset urticaria. Could be drug eruption, contact dermatitis, inset bites, vasculitis. Contacting dermatology (Dr. Harris) and dermatopathology (Dr. Murdock) for biopsy. Encouraged pt to take antihistamines - currently fixated on purpose of various medications and insisting they are not working. States that doxycycline is "not for cellulitis" and insists that cellulitis can not be treated with oral antibiotics. Pt frustrated that she was told different possible diagnoses by different providers. Objective Active Medications: Acetaminophen (Tylenol Tab*) 650 mg PO Q4H PRN PRN Reason: FEVER/PAIN Cetirizine HCl (Zyrtec*) 10 mg PO DAILY [facility] Last Admin: 09/24/18 13:31 Dose: 10 mg Diphenhydramine HCl (Benadryl Po*) 25 mg PO Q6H PRN PRN Reason: itchy skin Last Admin: 09/24/18 13:31 Dose: 25 mg Doxycycline Hyclate (Vibramycin Cap(*)) 100 mg PO BID [facility] Enoxaparin Sodium (Lovenox(*)) 40 mg SUBCUT Q24H [facility] Last Admin: 09/23/18 22:56 Dose: 40 mg Ibuprofen (Motrin Tab*) 600 mg PO Q6H PRN PRN Reason: PAIN Last Admin: 09/23/18 22:11 Dose: 600 mg Pseudoephedrine HCl (Sudafed Tab*) 30 mg PO ONCE PRN PRN Reason: CONGESTION Stop: 09/24/18 21:40 Vital Signs - 8 hr 09/24/18 09/24/18 03:48 08:26 Temperature 97.4 F Pulse Rate 86 Respiratory 20 Rate Blood Pressure 142/80 136/84 (mmHg) O2 Sat by Pulse 100 Oximetry Oxygen Devices in Use Now: None Appearance: well appearing, nad Eyes: No Scleral Icterus Ears/Nose/Mouth/Throat: Clear Oropharnyx, Mucous Membranes Moist Neck: NL Appearance and Movements; NL JVP Respiratory: Clear to Auscultation Cardiovascular: RRR Abdominal: NL Sounds; No Tenderness; No Distention, No Hepatosplenomegaly Lymphatic: No Cervical Adenopathy, No Axillary Adenopathy Extremities: No Edema Skin: - - large area of erythema and induration over medial L thigh, medial inferior R buttocks, flexural areas of UEs b/l, and 4-5cm area over medial RUE; these areas are warm but without discharge, tenderness, papules or vesicles Neurological: Alert and Oriented x 3, NL Sensation, NL Gait, NL Muscle Strength and Tone Result Diagrams: 09/24/18 05:34 09/24/18 05:34 Assess/Plan/Problems-Billing Assessment: 38 lactating woman with recent tacrolimus for IVF presents with spreading pruritic erythema and induration without papules, vesicles, discharge. - Patient Problems (1) Urticaria Comment: Concern for new-onset urticaria, jagdish given new sites of erythema/ induration at sites of skin puncture when attempting peripheral IV. Could be drug eruption, contact dermatitis, inset bites, vasculitis. - f/u derm consult, biopsy performed by derm path - will continue doxycycline and antihistamine treatment - consider Solumedrol if worsening; monitor respiratory/oropharyngeal symptoms (2) DVT prophylaxis Current Visit: Yes Status: Acute Code(s): Z29.9 - ENCOUNTER FOR PROPHYLACTIC MEASURES, UNSPECIFIED SNOMED Code(s): 357681334 Comment: michael
[2018-09-24] MEDS: DOXYcycline IV* 100 MG in NS 0.9% 250 ML* 250 ML IVPB SCH (10:49)
[2018-09-24] MEDS: Cetirizine* 10 MG TAB PO SCH (13:31)
[2018-09-24] MEDS: diPHENhydraMINE PO* 25 MG PO PRN ×2 (13:31→19:30)
[2018-09-24] MEDS ORDERED: diPHENhydraMINE CREAM 2%(NF) 28 gm TUBE TOPICAL PRN (20:13)
[2018-09-24] MEDS ORDERED: Hydrocortisone 1% CREAM* 30 GM TUBE TOPICAL PRN (20:13)
[2018-09-24] MEDS: DOXYcycline CAP(*) 100 MG PO SCH ×2 (20:46→23:00)
[2018-09-24] MEDS ORDERED: diPHENhydraMINE CREAM 2%(NF) 28 gm TUBE TOPICAL SCH (21:00)
[2018-09-24] MEDS ORDERED: Hydrocortisone 1% CREAM* 30 GM TUBE TOPICAL SCH (21:00)
[2018-09-24] MEDS: Enoxaparin(*) 40 MG/0.4 ML SYR SUBCUT SCH (22:13)
--- NOTE | 2018-09-25 07:09 | PN ---
Subjective Date of Service: 09/25/18 Interval History: HD # 3 on 09/25 38 F lactating, recent IVF and tacro presenting with rash, drug eruption vs cellulitis vs urticaria Overnight no acute events, VSS Labs:unremarkable on 09/24 This morning refusing oral abx, frustrated with care, perseverant on multiple different aspects of care. Discussed plan of care, she now has diffuse hive appearing welts on blt arms and spreading of R thigh and buttock. No CP, SOB, no oral complaints. Objective Active Medications: Acetaminophen (Tylenol Tab*) 650 mg PO Q4H PRN PRN Reason: FEVER/PAIN Last Admin: 09/24/18 20:47 Dose: 650 mg Cetirizine HCl (Zyrtec*) 10 mg PO DAILY [facility] Last Admin: 09/24/18 13:31 Dose: 10 mg Diphenhydramine HCl (Benadryl Po*) 25 mg PO Q6H PRN PRN Reason: itchy skin Last Admin: 09/24/18 19:30 Dose: 25 mg Doxycycline Hyclate (Vibramycin Cap(*)) 100 mg PO BID [facility] Last Admin: 09/24/18 23:00 Dose: 100 mg Enoxaparin Sodium (Lovenox(*)) 40 mg SUBCUT Q24H [facility] Last Admin: 09/24/18 22:13 Dose: 40 mg Hydrocortisone (Hytone Cream 1%*) 1 applic TOPICAL QID PRN PRN Reason: ITCHING Vital Signs - 8 hr 09/25/18 00:00 Temperature 99.2 F Pulse Rate 120 Respiratory 18 Rate Blood Pressure 129/90 (mmHg) O2 Sat by Pulse 100 Oximetry Oxygen Devices in Use Now: None Eyes: No Scleral Icterus Ears/Nose/Mouth/Throat: NL Teeth, Lips, Gums, Clear Oropharnyx Neck: NL Appearance and Movements; NL JVP, Trachea Midline Respiratory: Symmetrical Chest Expansion and Respiratory Effort, Clear to Auscultation Cardiovascular: NL Sounds; No Murmurs; No JVD, RRR Abdominal: NL Sounds; No Tenderness; No Distention, No Hepatosplenomegaly Lymphatic: No Cervical Adenopathy Extremities: No Edema Skin: - - Diffuse indurated welt appearing lesions in blt inner thigh (bx site on R) and blt arms Neurological: Alert and Oriented x 3 Result Diagrams: 09/24/18 05:34 09/24/18 05:34 Microbiology and Other Data: Microbiology 09/23/18 17:33 Aerobic Blood Culture - Preliminary Blood Venous No Growth Day 1 Anaerobic Blood Culture - Preliminary No Growth Day 1 09/23/18 17:33 Aerobic Blood Culture - Preliminary Blood Venous No Growth Day 1 Anaerobic Blood Culture - Preliminary No Growth Day 1 Assess/Plan/Problems-Billing Assessment: 38 lactating woman with recent tacrolimus for IVF, and with hx of gene mutation that predisposes to coagulapathy, presents with spreading pruritic erythema and induration without papules, vesicles, discharge. - Patient Problems (1) Urticaria Current Visit: Yes Status: Acute Code(s): L50.9 - URTICARIA, UNSPECIFIED SNOMED Code(s): 551561666 Comment: Concern for new-onset urticaria, jagdish given new sites of erythema/ induration at sites of skin puncture when attempting peripheral IV. Could be drug eruption, contact dermatitis, inset bites, urticarial vasculitis. Less likely infectious - f/u derm consult, biopsy performed by derm path - will continue doxycycline and antihistamine treatment, Doxy Day 3/__, unlikely lyme. - Will start solumedrol for moderate disease, likely stable for d/c - consider Solumedrol if worsening; monitor respiratory/oropharyngeal symptoms (2) Coagulopathy Current Visit: Yes Status: Acute Comment: - Gene mutation, remains on tx dose Lovenox (3) DVT prophylaxis Current Visit: Yes Status: Acute Code(s): Z29.9 - ENCOUNTER FOR PROPHYLACTIC MEASURES, UNSPECIFIED SNOMED Code(s): 677545781 Comment: lovenox Status and Disposition: Stable for d/c if tolerates steroids
[2018-09-25] MEDS: diPHENhydraMINE PO* 25 MG PO PRN (08:07)
[2018-09-25] MEDS: Cetirizine* 10 MG TAB PO SCH (08:07)
[2018-09-25 09:37] LABS: ABS Eosinophils 0.1 10^3/ul (0-0.6); ABS Lymphocytes 2.4 10^3/ul (1.0-4.8); ABS Monocytes 0.3 10^3/ul (0-0.8); Eosinophil % 0.8 %; Hematocrit 42 % (35-47); Hemoglobin 13.8 g/dL (12.0-16.0); Lymphocyte % 27.6 %; Mean Corpuscular HGB Conc 33 g/dL (31-36); Mean Corpuscular Hemoglobin 26 pg (27-31); Mean Corpuscular Volume 80 fL (80-97); Mean Platelet Volume 8.1 fL (7.4-10.4); Nucleated Red Blood Cells % 0.2; Platelet Count 405 10^3/uL (150-450); Red Blood Count 5.25 10^6 /uL (3.70-4.87); Red Cell Distribution Width 15 % (10.5-15); White Blood Count 8.8 10^3/uL (3.5-10.8)
[2018-09-25 09:53] VITALS: BP 120/76
[2018-09-25] MEDS ORDERED: methylPREDNISolone SOD 40 MG* 1 ML VIAL IV SCH (10:00)
[2018-09-25] MEDS: DOXYcycline CAP(*) 100 MG PO SCH (10:14)
--- NOTE | 2018-09-25 16:21 | DS ---
CC: Dr. Harris; Dr. Moore * DISCHARGE SUMMARY: DATE OF ADMISSION: 09/23/18 DATE OF DISCHARGE: 09/25/18 PRIMARY CARE PROVIDER: None. DISPOSITION: To home when stable. PRIMARY DIAGNOSIS: Urticaria, not otherwise specified. SECONDARY DIAGNOSES: 1. Lactating female, status post recent tacrolimus in the setting of in vitro fertilization. 2. 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 MEDICATIONS ON DISCHARGE: 1. Doxycycline 100 mg p.o. b.i.d. 2. Hydrocortisone cream 1% apply topically 4 times daily. 3. Prednisone 40 mg p.o. daily x7 days. 4. Cetirizine 10 mg p.o. daily. 5. vitamins daily. 6. Diphenhydramine 25 mg p.o. q.6 hours p.r.n. for itching. Medication changes on this hospitalization are startin. Prednisone 40 mg daily. 2. Cetirizine 10 mg daily. 3. Doxycycline 100 mg p.o. b.i.d. 4. The discontinuation of cephalexin. HISTORY OF PRESENT ILLNESS AND HOSPITAL COURSE: This is a 38-year-old female, G1, P1, currently 8 months status post last and current IVF treatment , who presented to the emergency room on 09/23/18 with skin complaints. The patient had been having 1 day of bilateral inner thigh rash started when she was sitting on a bench at work, stood up and had a painful welt on her inner thigh that radiated to the left buttock, presented to urgent care, was presumed to be cellulitis, placed on Keflex and the patient was told to return to the emergency room if induration and redness went past drawn lines. Ultimately, swelling, induration and redness increased to upper left thigh as well as spreading to right inner thigh and she presented to the emergency room where initially concern was for worsening cellulitis, possible lyme disease and the patient was admitted to observation status to continue to monitor the progression of this rash. She was placed on doxycycline with the thought that there had been outpatient antibiotic failure with Keflex and hospital course by problem is as follows: 1. Rash. While the patient initially was concerned to have cellulitis, possibly even the diagnosis of sepsis was entertained secondary to tachycardia alone. The patient had no increase in her white blood cell count, no fever, no tachypnea, and mild tachycardia, thus meeting 1/4 SIRS criteria without any clear source. In regards to the rash itself, it appeared indurated, warm, and pruritic with no vesicles, papules, or overlying exudate. Rash initially stayed centered at bilateral inner thighs extending to left buttock, though by 09/25/18, rash had spread in a [id number] manner to bilateral upper extremities, chest wall, and wrist. The patient found the rash intensely pruritic as well as tender and tense and the thought that this was possible urticaria or urticarial vasculitis was entertained. Dermatology was consulted and a biopsy was done on the left inner thigh on 09/24/18 for further followup. The patient was started on Solu-Medrol 40 mg IV x1 with improvement of her symptoms and continued on cetirizine as well as doxycycline and the low suspicion that this was atypical cellulitis or lyme disease. A lyme test was done, antibody was negative, though this was truly concerning for early lyme, both antibodies would be negative and thus the decision to continue it was made until follow up with Derm and results of dermpath were resulted. The patient tolerated prednisone, doxycycline, and cetirizine well here in the hospital and will be discharged on such. 2. IVF, status post recent tacro. The patient was on Prograf in the setting of re- trialing IVF cycle. The patient will put this on hold. There were initial concerns that possible immunocompromised status led to the patient's current presentation, although there is no clear drug reaction that has systemic involvement, although as above, this rash could be representation of a drug reaction and currently no systemic involvement with kidney and LFTs normal. ITEMS TO FOLLOW UP ON AFTER DISCHARGE: Rash. The patient will be discharged to Dermatology to follow up on results of dermpath and decision to discontinue antibiotics if constantly felt that this is noninfectious source and continue with antihistamine and steroids in the setting that this may be urticarial or mast cell- mediated. If pathology or clinical presentation is unremarkable, consultation was also made to Dr. Moore's office in the event that Dermatology felt this was more infectious nature and the patient was counseled to stay on antibiotics until results had arrived in either account. She expresses understanding. LABORATORY DATA: Labs including the CBC were normal. PHYSICAL EXAMINATION: On the day of discharge, the patient has normal vital signs. Physical exam was notable for a pleasant woman, in no acute distress. She is noted to have bilateral upper extremity areas of induration roughly 3 cm in diameter, mild warmth with no overlying vesicles, papules, or macules and unable to reproduce urticaria with scraping or pin scratch across the skin. She also has bilateral inner thigh induration and redness in demarcated lines roughly 7 cm in diameter on the right and 8 cm in diameter on the left. She has faint what appears to be early hives on the upper chest. She has no evidence of oral angioedema, no difficulty breathing, and no shortness of breath , or wheeze. Her cardiac exam is regular rate and rhythm. No murmurs, rubs, or gallops. She is tolerating diet and ambulating and voiding freely. TIME SPENT: Thirty five minutes was spent in the planning of this discharge with over half of that was spent directly at the bedside of the patient providing direct patient care. Plan of care was discussed with the patient and family. They understand to follow up with Dermatology, continue on prednisone and doxycycline until further instructed and to return to the emergency room if any evidence of oral angioedema, difficulty breathing, wheezing, or change in rash or side effects to medications prescribed on discharge. They expressed understanding and have no further questions. [id number]/[facility] #: [id number] JACLYN
== END 2018-09-25 17:30 | disposition home or self-care (01) ==
LOC: ED 14:51 → MED 21:38
PROVIDERS: ADMIT Internal Medicine; ATTEND Internal Medicine
DX: L50.8 Other urticaria (principal); O92.70 Unspecified disorders of lactation; Z14.8 Genetic carrier of other disease; R21 Rash and other nonspecific skin eruption; R60.0 Localized edema; D68.9 Coagulation defect, unspecified; Z79.01 Long term (current) use of anticoagulants
CPT/HCPCS: 11104; 36415; 80048; 80053; 81003; 81015; 82550; 83605; 84484; 85025; 85610; 85652; 85730; 86140; 86618; 87040; 87086; 88305; 96365; 96366; 96372; 96376; 99284; A9270-GY; G0378; J0690; J1650; J2920

== ENCOUNTER 2019-10-20 23:22 | Inpatient (IN) ==
[2019-10-21] MEDS ORDERED: Dibucaine 1% OINT 28.35 GM TUBE ONE (01:09)
[2019-10-21] MEDS ORDERED: Witch Hazel PAD JAR ONE (01:09)
[2019-10-21 01:13] LABS: Hematocrit 33 % (35-47); Hemoglobin 10.9 g/dL (12.0-16.0); Mean Corpuscular HGB Conc 33 g/dL (31-36); Mean Corpuscular Hemoglobin 27 pg (27-31); Mean Corpuscular Volume 80 fL (80-97); Mean Platelet Volume 9.8 fL (7.4-10.4); Platelet Count 318 10^3/uL (150-450); Red Cell Distribution Width 14 % (10-15); White Blood Count 14.1 10^3/uL (3.5-10.8)
[2019-10-21 01:32] LABS: ALT 9 U/L (7-52); AST 14 U/L (13-39); Albumin/Globulin Ratio 0.9 (1-3); Alkaline Phosphatase 394 U/L (34-104); Anion Gap 9 mmol/L (2-11); BUN/Creatinine Ratio 14.5 (8-20); Blood Urea Nitrogen 10 mg/dL (6-24); CO2 Carbon Dioxide 20 mmol/L (22-32); Calcium 8.6 mg/dL (8.6-10.3); Chloride 103 mmol/L (101-111); EGFR African American 115.2 (>60); EGFR Non-African American 95.2 (>60); Globulin 3.2 g/dL (2-4); Glucose 164 mg/dL (70-100); Sodium 132 mmol/L (135-145); Total Protein 6.2 g/dL (6.4-8.9); Uric Acid 3.5 mg/dL (2.3-6.6)
[2019-10-21 02:10] LABS: Hepatitis B Surface Antigen Nonreactive (Nonreactive)
[2019-10-21 02:13] LABS: HIV 4th Generation Nonreactive (Nonreactive)
[2019-10-21] MEDS ORDERED: Witch Hazel PAD JAR TOPICAL PRN (02:28)
[2019-10-21] MEDS ORDERED: Oxytocin 10 UNITS/ML 1 ML VIAL IM ONE (02:28)
[2019-10-21] MEDS ORDERED: Glycerin ADULT 2.4 gm SUPP PR PRN (02:28)
[2019-10-21] MEDS ORDERED: Dibucaine 1% OINT 28.35 GM TUBE PR PRN (02:28)
[2019-10-21] MEDS ORDERED: Lactated Ringers 1000 ml BAG 1,000 ML IV ONE (02:28)
[2019-10-21] MEDS ORDERED: Ammonia Inhalant 1 EA AMP ONE ×2 (02:44→07:21)
[2019-10-21] MEDS ORDERED: Lactated Ringers 1000 ml BAG 1,000 ML IV SCH ×2 (03:00)
[2019-10-21] MEDS ORDERED: Lidocaine 1% VIAL 10 MG/ML VIAL ONE (03:16)
[2019-10-21 04:16] LABS: Rubella Screen IgG Immune (Immune)
[2019-10-21 04:19] LABS: Urine Appearance Turbid; Urine Bilirubin Negative (Negative); Urine Blood 3+ (Negative); Urine Glucose 2+(150 mg/dL) (Negative); Urine Ketones Negative (Negative); Urine Nitrite Negative (Negative); Urine Protein 2+(100 mg/dL) (Negative); Urine Specific Gravity 1.018 (1.010-1.030); Urine Urobilinogen Negative (Negative)
[2019-10-21 04:21] LABS: Urine Bacteria Absent (Absent); Urine Red Blood Cell 3+(>10/hpf) (Absent); Urine White Blood Cell 3+(>20/hpf) (Absent)
[2019-10-21 04:22] LABS: Urine Color Red
[2019-10-21 04:32] LABS: Urine Benzodiazepine Screen None Detected (None Detect); Urine Opiates Screen None Detected (None Detect)
[2019-10-21 06:58] LABS: Hematocrit 29 % (35-47); Hemoglobin 9.5 g/dL (12.0-16.0); Mean Corpuscular HGB Conc 33 g/dL (31-36); Mean Corpuscular Hemoglobin 27 pg (27-31); Mean Corpuscular Volume 80 fL (80-97); Mean Platelet Volume 9.6 fL (7.4-10.4); Platelet Count 288 10^3/uL (150-450); Red Blood Count 3.57 10^6 /uL (3.70-4.87); Red Cell Distribution Width 14 % (10-15); White Blood Count 15.9 10^3/uL (3.5-10.8)
[2019-10-21 07:31] LABS: ABS Basophils 0.1 10^3/ul (0-0.2); ABS Lymphocytes 1.7 10^3/ul (1.0-4.8); ABS Monocytes 2.1 10^3/ul (0-0.8); Eosinophil % 0.2 %; Lymphocyte % 10.5 %
[2019-10-21 18:05] LABS: ABS Basophils 0.1 10^3/ul (0-0.2); ABS Eosinophils 0.1 10^3/ul (0-0.6); ABS Lymphocytes 1.9 10^3/ul (1.0-4.8); ABS Monocytes 1.5 10^3/ul (0-0.8); Eosinophil % 0.9 %; Hematocrit 26 % (35-47); Hemoglobin 8.6 g/dL (12.0-16.0); Lymphocyte % 14.3 %; Mean Corpuscular HGB Conc 33 g/dL (31-36); Mean Corpuscular Hemoglobin 27 pg (27-31); Mean Corpuscular Volume 82 fL (80-97); Mean Platelet Volume 9.6 fL (7.4-10.4); Platelet Count 244 10^3/uL (150-450); Red Blood Count 3.17 10^6 /uL (3.70-4.87); Red Cell Distribution Width 14 % (10-15); White Blood Count 13.7 10^3/uL (3.5-10.8)
[2019-10-22 07:44] VITALS: BP 134/89
[2019-10-22 08:53] LABS: ABS Eosinophils 0.2 10^3/ul (0-0.6); Eosinophil % 1.6 %; Hematocrit 24 % (35-47); Hemoglobin 8.2 g/dL (12.0-16.0); Lymphocyte % 18.8 %; Mean Corpuscular HGB Conc 34 g/dL (31-36); Mean Corpuscular Hemoglobin 27 pg (27-31); Mean Corpuscular Volume 80 fL (80-97); Mean Platelet Volume 9.1 fL (7.4-10.4); Platelet Count 235 10^3/uL (150-450); Red Blood Count 3.03 10^6 /uL (3.70-4.87); Red Cell Distribution Width 14 % (10-15); White Blood Count 10.7 10^3/uL (3.5-10.8)
== END 2019-10-22 13:28 | disposition home or self-care (01) | DRG 806 ==
LOC: MCHOBOUT 23:22 → MCHOB 23:27
PROVIDERS: ADMIT Midwife; ATTEND Midwife